=== PATIENT | female | born 1970 | race Caucasian/White ===

== ENCOUNTER 2020-08-24 14:52 | Emergency (ER) | payer MEDICAID ==
[~2020-08-24] VITALS: Ht 182.9 cm; Wt 87.2 kg
[2020-08-24 15:23] VITALS: BP 130/90
--- NOTE | 2020-08-24 16:15 | NUR ---
PADMINI Florentino, with patient. Patient is tearful and anxious but denies suicidal ideation. Patient moved here to be close to her best friend 2 months ago. Patient has a lot of anxiety. Patient and Nahun spoke for a long time about coping skills, good self talk and patient calmed down. Patient states she has never considered suicide because it would [email or web address] her father so she would never do it. Patient has an on-line therapist but was feeling overwhelemed today. Continue to monitor.
== END 2020-08-24 16:58 | disposition home or self-care (01) ==
LOC: ER 14:53
DX: F32.9 Major depressive disorder, single episode, unspecified (principal); F41.9 Anxiety disorder, unspecified; Z56.0 Unemployment, unspecified
CPT/HCPCS: 99281

== ENCOUNTER 2020-09-12 14:12 | Emergency (ER) | payer BC, MEDICAID ==
[~2020-09-12] VITALS: Ht 182.9 cm; Wt 88.0 kg
[2020-09-12 14:22] VITALS: BP 117/78
[2020-09-12] MEDS ORDERED: bacitracin 15gm ointment TP ONE (16:30)
[2020-09-12] MEDS ORDERED: ketorolac tromethamine 15mg/ml inj. IM ONE (16:30)
[2020-09-12] MEDS ORDERED: HYDR-3965 PO (16:37)
[2020-09-12] MEDS ORDERED: BACI1PAC7 TOP (16:37)
== END 2020-09-12 16:48 | disposition home or self-care (01) ==
LOC: ER 14:13
DX: T20.10XA Burn of first degree of head, face, and neck, unspecified site, initial encounter (principal); T31.0 Burns involving less than 10% of body surface; F41.9 Anxiety disorder, unspecified; F32.9 Major depressive disorder, single episode, unspecified; Z60.2 Problems related to living alone; Z79.899 Other long term (current) drug therapy; X58.XXXA Exposure to other specified factors, initial encounter; Y93.89 Activity, other specified; Y92.89 Other specified places as the place of occurrence of the external cause; Y99.8 Other external cause status
CPT/HCPCS: 16000; 96372; 99283; J1885; 16025

== ENCOUNTER 2021-01-26 16:36 | Emergency (ER) | payer BC, MEDICAID | END 2021-01-26 22:26 | disposition left against medical advice (07) | LOC: ER 16:37 | DX: T78.40XA Allergy, unspecified, initial encounter (principal); Z53.21 Procedure and treatment not carried out due to patient leaving prior to being seen by health care provider; Y92.89 Other specified places as the place of occurrence of the external cause ==